=== PATIENT | female | born 2000 | race Caucasian/White ===

== ENCOUNTER 2023-11-10 22:58 | Inpatient (IN) ==
[2023-11-11 01:20] LABS: Urine Benzodiazepine Screen None Detected (None Detect); Urine Cannabinoids Screen Presumptive Positive (None Detect); Urine Opiates Screen None Detected (None Detect)
[2023-11-11] MEDS: Droperidol 5 MG/2 ML 2 ML VIAL IM ONE (01:40)
[2023-11-11] MEDS ORDERED: Al Hydrox/Mg Hydrox/Simet LIQ 30 ML UDC PO PRN (15:02)
[2023-11-12 08:32] LABS: HDL Cholesterol 63.6 mg/dL
[2023-11-12] MEDS: Vitamin THERAPEUTIC TAB PO SCH (09:34)
[2023-11-16 21:08] LABS: ABS Basophils 0.1 10^3/uL (0.0-0.1); ABS Eosinophils 0.3 10^3/uL (0.0-0.5); ABS Lymphocytes 3.7 10^3/uL (1.0-4.8); ABS Monocytes 0.6 10^3/uL (0.0-0.9); ABS Neutrophils 3.5 10^3/uL (1.5-7.6); ABS Nucleated RBC 0.01 10^3/ul; Eosinophil % 3.8 %; Hematocrit 44.1 % (35-45); Hemoglobin 14.8 g/dL (11.5-14.3); Lymphocyte % 45.2 %; Mean Corpuscular Hemoglobin 29.3 pg (27-33); Mean Corpuscular Hgb Conc 33.5 g/dL (31-36); Mean Corpuscular Volume 87.4 fL (80-97); Mean Platelet Volume 8.2 fL (7.5-11.2); Nucleated Red Blood Cells % 0.1 %/100WBC (0.0-0.8); Platelet Count 349 10^3/uL (150-450); Red Blood Count 5.04 10^6/uL (3.63-4.92); Red Cell Distribution Width 12.8 % (12-17); White Blood Count 8.2 10^3/uL (3.8-11.8)
[2023-11-16 21:26] LABS: Albumin 4.7 g/dL (3.2-5.2); Calcium 9.8 mg/dL (8.6-10.3); Creatinine, Serum 0.55 mg/dL (0.51-0.95); Globulin 2.3 g/dL (2-4); Potassium 4.2 mmol/L (3.5-5.0); Total Bilirubin 0.6 mg/dL (0.2-1.0); eGFR CKD-EPI 132.8 (>60)
[2023-11-16 21:42] LABS: TSH Ultra Thyroid Stim Horm 0.83 mcIU/mL (0.34-5.60)
[2023-11-21 09:42] VITALS: BP 115/56
== END 2023-11-21 13:15 | disposition home or self-care (01) | DRG 753 ==
LOC: ED 22:58 → EDHOLD 11-11 13:59 → BSU 11-11 14:10
PROVIDERS: ADMIT Psychiatry & Neurology Psychiatry; ATTEND Psychiatry & Neurology Psychiatry